=== PATIENT | male | born 1960 | race Two or more races ===

== ENCOUNTER → 2016-10-04 | Outpatient (CLI) | payer BC | LOC: BMCIMAGING 13:32 | PROVIDERS: ATTEND Internal Medicine | DX: R05 Cough (principal); R50.9 Fever, unspecified ==

== ENCOUNTER → 2017-06-09 | Outpatient (CLI) | payer BC | LOC: BMCIMAGING 15:17 | PROVIDERS: ATTEND Urology | DX: N13.30 Unspecified hydronephrosis (principal) ==

== ENCOUNTER → 2017-06-19 | Outpatient (CLI) | payer BC | LOC: FIMAGING 06:34 | PROVIDERS: ATTEND Urology | DX: N20.1 Calculus of ureter (principal) ==